=== PATIENT | female | born 1970 | race African-American/Black ===

== ENCOUNTER 2018-09-30 09:11 | Emergency (ER) | payer SELFPAY ==
[~2018-09-30] VITALS: Ht 177.8 cm; Wt 100.0 kg
[2018-09-30] MEDS ORDERED: IBUPROFEN 600MG TABLET PO ONE (11:45)
[2018-09-30 14:50] VITALS: BP 125/87
== END 2018-09-30 14:56 | disposition home or self-care (01) ==
LOC: ER 09:11
DX: M25.511 Pain in right shoulder (principal); J06.9 Acute upper respiratory infection, unspecified; K21.9 Gastro-esophageal reflux disease without esophagitis; M54.30 Sciatica, unspecified side; I10 Essential (primary) hypertension; J45.909 Unspecified asthma, uncomplicated; Z98.890 Other specified postprocedural states; Z88.2 Allergy status to sulfonamides
CPT/HCPCS: 73030; 81025; 99283